=== PATIENT | female | born 1995 | race African-American/Black ===

== ENCOUNTER 2016-07-11 21:21 | Emergency (ER) | payer OTHER ==
[2016-07-11 21:28] VITALS: BP 125/73; PULSE 109; TEMP 101.7
[2016-07-11] MEDS ORDERED: ACETAMINOPHEN 650 MG/20.3 ML ORAL SOLUTION (CUPS) PO ONE (21:29)
--- NOTE | 2016-07-11 22:17 | PDOC ---
[id number] 4d COLD SYMPTOMS Time Seen by Provider: 07/11/16 22:05 History Source: Patient Exam Limitations: No Limitations - History of Present Illness Initial Comments: 07/11/16 22:14 Chief complaint: Sore throat, fever, slight nausea 4 days History of present illness: Patient is a 20 year old female with no significant medical history here today with her mother due to sore throat with fever and slight nausea 4 days. Patient denies nasal congestion or difficulty breathing or swallowing. Patient's is unsure of whether or not she could be has been off Depo shot since 01/2016. Patient denies any vomiting. She has had intermittent dry cough. And has had no known sick contacts. Patient did not have influenza vaccine. 07/11/16 22:51 Timing/Duration: intermittent (for 4 days) Severity: moderate Associated Symptoms: reports: fever/chills, nausea/vomiting (slight nausea), other (sore throat) Past History - Past Medical History Allergies/Adverse Reactions: Allergies Allergy/AdvReac Type Severity Reaction Status Date / Time No Known Allergies Allergy Verified 07/11/16 21:27 Thyroid Disease: No - Immunization History Immunization Up to Date: Yes - Psycho/Social/Smoking Cessation Hx Anxiety: No Suicidal Ideation: No Smoking Status: No Smoking History: Current some day smoker Have you smoked in the past 12 months: Yes Number of Cigarettes Smoked Daily: 4 Information on smoking cessation initiated: No 'Breaking Loose' booklet given: 04/19/16 Hx Alcohol Use: Yes Drug/Substance Use Hx: No Substance Use Type: Alcohol Review of Systems - Review of Systems Able to Perform ROS?: Yes Constitutional: Yes: Fever HEENTM: Yes: Throat Pain Respiratory: Yes: Cough. No: Shortness of Breath, SOB with Exertion, SOB at Rest, Stridor, Wheezing, Productive cough Cardiac (ROS): No: Symptoms Reported ABD/GI: Yes: Nausea : No: Symptoms Reported Musculoskeletal: No: Symptoms Reported Integumentary: No: Symptoms Reported Neurological: No: Symptoms reported *Physical Exam - Vital Signs Last Vital Signs Temp Pulse Resp BP Pulse Ox 101.7 F H 109 H 20 125/73 98 07/11/16 21:24 07/11/16 21:24 07/11/16 21:24 07/11/16 21:24 07/11/16 21:24 - Physical Exam General Appearance: Yes: Appropriately Dressed HEENT: positive: TMs Normal, Pharyngeal Erythema, Tonsillar Erythema (b/l enlarged with no uvular deviation ). negative: Tonsillar Exudate, Nasal Congestion, Rhinorrhea Neck: positive: Lymphadenopathy (R), Lymphadenopathy (L) Respiratory/Chest: positive: Lungs Clear, Normal Breath Sounds. negative: Chest Tender, Respiratory Distress Cardiovascular: positive: Regular Rhythm, Regular Rate, S1, S2 Integumentary: positive: Normal Color Neurologic: positive: Alert, Normal Response ED Treatment Course - Medications Given in the ED: ED Medications Discontinued Medications Generic Name Dose Route Start Last Admin Trade Name Eddy PRN Reason Stop Dose Admin Acetaminophen 650 mg 07/11/16 21:29 07/11/16 21:29 Tylenol Oral Solution - PO 07/11/16 21:30 650 mg NOW ONE Administration Medical Decision Making - Medical Decision Making 07/11/16 22:15 Patient is a 20 year old female with no significant medical history here today with her mother due to sore throat with fever and slight nausea 4 days. Patient denies any cough nasal congestion or difficulty breathing or swallowing. Patient's is unsure of whether or not she could be has been off Depo shot since 01/2016. Patient denies any vomiting. Tonsillitis Fever Rule out Plan: Urine hCG negative Pen VK 500 mg 4 times a day 7 days pt did not want pills Bicilliin LA 1.2 million units IM Decadron 10 mg by mouth now 07/11/16 22:40 07/11/16 22:44 07/11/16 22:47 *DC/Admit/Observation/Transfer Diagnosis at time of Disposition: Tonsillitis Fever Qualifiers: Fever type: unspecified Qualified Code(s): R50.9 - Fever, unspecified - Discharge Dispostion Disposition: HOME Condition at time of disposition: Stable - Referrals Referrals: Soham Cai MD [Primary Care Provider] - - Patient Instructions Additional Instructions: Drink A lot a fluids and rest ' Take acetaminophen or ibuprofen as needed as directed by trial justice for fever or pain Follow-up with primary within the next few days Return to emergency room if any difficulty breathing or swallowing Throw out toothbrush at the end of treatment get new one Patient voiced understanding of discharge instructions and all questions were answered
[2016-07-11] MEDS ORDERED: DEXAMETHASONE LIQUID 0.5 MG/5 ML 240 ML BULK BOTTLE PO ONE (22:44)
[2016-07-11] MEDS ORDERED: PENICILLIN G BENZATHINE 1,200,000 UNIT/2 ML PFS IM ONE (22:46)
[2016-07-11] MEDS ORDERED: PENICILLIN G BENZATHINE 2,400,000 UNIT/4 ML PFS ONE (22:47)
[2016-07-11] MEDS ORDERED: DEXAMETHASONE SOD PHOSPHATE 10 MG/1 ML VIAL ONE (22:48)
== END 2016-07-11 22:59 | disposition home or self-care (01) ==
LOC: JER 21:21 → JERFT 21:21
DX: J03.90 Acute tonsillitis, unspecified (principal); F17.210 Nicotine dependence, cigarettes, uncomplicated
CPT/HCPCS: 84703; 99281-25

== ENCOUNTER 2016-08-30 16:31 | Emergency (ER) | payer OTHER ==
[2016-08-30 16:48] VITALS: BMI 20.3
--- NOTE | 2016-08-30 17:00 | PDOC ---
*Physical Exam - Vital Signs Last Vital Signs Temp Pulse Resp BP Pulse Ox 99.0 F 105 H 18 125/80 98 08/30/16 16:47 08/30/16 16:47 08/30/16 16:47 08/30/16 16:47 08/30/16 16:47 Medical Decision Making - Medical Decision Making 08/30/16 17:00 Case discussed with SIGN PAINTER APPRENTICE. Plan as per SIGN PAINTER APPRENTICE *DC/Admit/Observation/Transfer Diagnosis at time of Disposition: Herpes simplex labialis - Discharge Dispostion Disposition: HOME Condition at time of disposition: Good - Prescriptions Prescriptions: Cephalexin [Keflex Suspension] 500 mg PO BID #140 ml Acyclovir Oral Suspension [Zovirax 200mg/5mL Oral Suspension -] 400 mg PO TID # 300 ml - Referrals Referrals: Rajesh Mayorga MD [Primary Care Provider] - - Patient Instructions Printed Discharge Instructions: DI for Urinary Tract Infection (UTI), DI for Genital Herpes Additional Instructions: I have recommended that you use a betadine rinse bottle mixed with half warm water to use when voiding to avoid skin irritation. Please take Keflex as prescribed until completed. Please take Zovirax until completed. Please call [phone] if you have not received a phone call in 7 days for results. - Post Discharge Activity Work/School Note: Back to Work
[2016-08-30] MEDS ORDERED: ACYCLOVIR 200 MG/5 ML PO ONE (17:10)
[2016-08-30] MEDS ORDERED: ACETAMINOPHEN 650 MG/20.3 ML ORAL SOLUTION (CUPS) PO ONE (17:10)
[2016-08-30] MEDS ORDERED: CEPHALEXIN MONOHYDRATE 500 MG CAPSULE (UD) PO ONE (17:11)
[2016-08-30] MEDS ORDERED: ACETAMINOPHEN 650 MG/20.3 ML ORAL SOLUTION (CUPS) ONE (17:28)
[2016-08-30] MEDS ORDERED: CEPHALEXIN MONOHYDRATE 250 MG CAPSULE (FP) ONE (17:29)
--- NOTE | 2016-08-30 17:47 | PDOC ---
History of Present Illness - General Chief Complaint: Pain, Acute Stated Complaint: ABD PAIN Time Seen by Provider: 08/30/16 16:41 History Source: Patient Exam Limitations: No Limitations - History of Present Illness Initial Comments: 08/30/16 17:42 20-year-old female presents to the ED with complaints of vaginal sores with burning and chills. Patient was seen at [facility] yesterday was given a dose of IV antibiotics for UTI and a prescription for Keflex which she was unable to get and due to the sores on her labia she decided to come to [facility] since she states no one address the sores on her labia when at [facility] yesterday. Patient denies fever but does state intermittent chills and states is currently mentating. Patient states has been with one sexual partner and denies any known STD history. Patient denies abdominal pain, vaginal discharge prior to menses, back pain, or history of STD. Timing/Duration: getting worse Severity: moderate Associated Symptoms: reports: other (burning to labia) Past History - Past Medical History Allergies/Adverse Reactions: Allergies Allergy/AdvReac Type Severity Reaction Status Date / Time No Known Allergies Allergy Verified 07/11/16 21:27 Home Medications: Ambulatory Orders Acyclovir Oral Suspension [Zovirax 200mg/5mL Oral Suspension -] 400 mg PO TID # 300 ml 08/30/16 Cephalexin [Keflex Suspension] 500 mg PO BID #140 ml 08/30/16 Thyroid Disease: No - Reproductive History LMP Normal: Yes Is Patient Now?: No - Immunization History Immunization Up to Date: Yes - Psycho/Social/Smoking Cessation Hx Anxiety: No Suicidal Ideation: No Smoking Status: No Smoking History: Current every day smoker Have you smoked in the past 12 months: Yes Number of Cigarettes Smoked Daily: 10 Information on smoking cessation initiated: No 'Breaking Loose' booklet given: 04/19/16 Hx Alcohol Use: No Drug/Substance Use Hx: No Substance Use Type: None Patient Lives Alone: No Lives with/in: parents Review of Systems - Review of Systems Able to Perform ROS?: Yes Constitutional: Yes: Chills. No: Fever ABD/GI: No: Symptoms Reported Integumentary: Yes: Other Neurological: No: Symptoms reported Endocrine: No: Symptoms Reported Hematologic/Lymphatic: No: Symptoms Reported *Physical Exam - Vital Signs Last Vital Signs Temp Pulse Resp BP Pulse Ox 99.0 F 105 H 18 125/80 98 08/30/16 16:47 08/30/16 16:47 08/30/16 16:47 08/30/16 16:47 08/30/16 16:47 - Physical Exam General Appearance: Yes: Nourished, Appropriately Dressed. No: Apparent Distress Female Pelvic Exam: positive: vaginal bleeding (currently menstruating), other ( noted cankerous lesions to left labia and around the vaginal opening) Gastrointestinal/Abdominal: positive: Soft. negative: Tenderness Integumentary: positive: Normal Color, Warm, Moist Neurologic: positive: Motor Strength 5/5 (ambulatory) Medical Decision Making - Medical Decision Making 08/30/16 17:45 Patient here for evaluation of sores to her labia and a prescription for her symptoms. Patient states also was diagnosed with UTI yesterday but did not start her pills and states has difficulty Tolerating pills. Based on clinical exam patient be treated with Zovirax STD workup including RPR ordered, urinalysis urine culture and urine ordered. Patient also ordered for first dose of Keflex here and liquid Tylenol. 08/30/16 18:14 Laboratory Tests 08/30/16 08/30/16 08/30/16 17:40 17:40 17:40 Urine Ketones Trace H Urine Blood 3+ H Ur Leukocyte Esterase 1+ H RPR Titer Pending C.trachomatis Ampl DNA Pending N. gonorrhoeae (LUIS) Pending 08/30/16 18:34 Laboratory Tests 08/30/16 17:40 Urine RBC 1716 Urine WBC 21 Patient will continue Keflex as prescribed requesting it be sent to [facility]. Patient will also be given prescription for Zovirax and told to take Tylenol for discomfort and fever. ST testing was sent including RPR and patient aware will receive phone call if positive within 7 days. Patient also be given the call back number *DC/Admit/Observation/Transfer Diagnosis at time of Disposition: Herpes simplex labialis - Discharge Dispostion Disposition: HOME Condition at time of disposition: Good - Prescriptions Prescriptions: Cephalexin [Keflex Suspension] 500 mg PO BID #140 ml Acyclovir Oral Suspension [Zovirax 200mg/5mL Oral Suspension -] 400 mg PO TID # 300 ml - Referrals Referrals: Rajesh Mayorga MD [Primary Care Provider] - - Patient Instructions Printed Discharge Instructions: DI for Genital Herpes, DI for Urinary Tract Infection (UTI) Additional Instructions: I have recommended that you use a betadine rinse bottle mixed with half warm water to use when voiding to avoid skin irritation. Please take Keflex as prescribed until completed. Please take Zovirax until completed. Please call [phone] if you have not received a phone call in 7 days for results. - Post Discharge Activity Work/School Note: Back to Work
[2016-08-30 17:56] LABS: URINE APPEARANCE SLCLOUDY; URINE BILIRUBIN NEGATIVE (NEGATIVE); URINE COLOR LTYELLOW; URINE GLUCOSE (UA) NEGATIVE (NEGATIVE); URINE KETONE TRACE (NEGATIVE); URINE NITRITE NEGATIVE (NEGATIVE); URINE PROTEIN NEGATIVE (NEGATIVE); URINE UROBILINOGEN NEGATIVE E.U./dl (0.2-1.0)
[2016-08-30 18:05] LABS: URINE BLOOD 3+ (NEGATIVE); URINE LEUK ESTERASE 1+ (NEGATIVE)
[2016-08-30 18:06] LABS: URINE MUCUS RARE; URINE RBC 1716 /hpf (0-3); URINE WBC 21 /hpf (3-5)
[2016-08-30 19:09] VITALS: BP 120/54; PULSE 89; TEMP 98.5
== END 2016-08-30 19:09 | disposition home or self-care (01) ==
LOC: JER 16:31
DX: A60.04 Herpesviral vulvovaginitis (principal); N39.0 Urinary tract infection, site not specified
CPT/HCPCS: 36415; 81003; 81015; 84703; 86593; 87086; 87255; 87491; 87591; 99282-25

== ENCOUNTER 2016-09-20 13:01 | Emergency (ER) | payer OTHER ==
[2016-09-20 13:06] VITALS: BP 120/84; PULSE 80; TEMP 97.8; BMI 18.3
[2016-09-20 14:18] LABS: URINE APPEARANCE CLEAR; URINE BILIRUBIN NEGATIVE (NEGATIVE); URINE BLOOD NEGATIVE (NEGATIVE); URINE COLOR STRAW; URINE GLUCOSE (UA) NEGATIVE (NEGATIVE); URINE KETONE NEGATIVE (NEGATIVE); URINE NITRITE NEGATIVE (NEGATIVE); URINE PROTEIN NEGATIVE (NEGATIVE); URINE UROBILINOGEN NEGATIVE E.U./dl (0.2-1.0)
[2016-09-20 14:20] LABS: URINE LEUK ESTERASE 2+ (NEGATIVE)
[2016-09-20 14:21] LABS: URINE BACTERIA RARE /hpf (NONE SEEN); URINE MUCUS RARE; URINE RBC 2 /hpf (0-3); URINE WBC 2 /hpf (3-5)
--- NOTE | 2016-09-20 14:21 | PDOC ---
History of Present Illness - General Chief Complaint: Urinary Problem Stated Complaint: burning on urination Time Seen by Provider: 09/20/16 13:44 History Source: Patient Exam Limitations: No Limitations - History of Present Illness Travel History: No Initial Comments: 09/20/16 14:28 Patient with complaints of vaginal itching and discharge for the past few days. Patient also complaining of continual bumps to her labia despite taking Zovirax. Patient also states has had unprotected sex after her last visit is requesting a test. Patient has no complaints of abdominal pain as mentioned in triage. Patient states mild dysuria but feels the burning is to the skin and not to the urethra secondary to open areas. Timing/Duration: reports: intermittent Quality: reports: mild, burning Abdominal Pain Onset Location: reports: other Aggravating Factors: improves with: Voiding Alleviating Factors: improves with: None Past History - Past Medical History Allergies/Adverse Reactions: Allergies Allergy/AdvReac Type Severity Reaction Status Date / Time No Known Allergies Allergy Verified 09/20/16 13:06 Home Medications: Ambulatory Orders Acyclovir Oral Suspension [Zovirax 200mg/5mL Oral Suspension -] 400 mg PO TID # 300 ml 08/30/16 Cephalexin [Keflex Suspension] 500 mg PO BID #140 ml 08/30/16 Thyroid Disease: No - Immunization History Immunization Up to Date: Yes - Psycho/Social/Smoking Cessation Hx Anxiety: No Suicidal Ideation: No Smoking Status: No Smoking History: Never smoked Have you smoked in the past 12 months: Yes Number of Cigarettes Smoked Daily: 10 Information on smoking cessation initiated: No 'Breaking Loose' booklet given: 04/19/16 Hx Alcohol Use: No Drug/Substance Use Hx: No Substance Use Type: None Patient Lives Alone: No Lives with/in: parents Review of Systems - Review of Systems Able to Perform ROS?: Yes Constitutional: No: Symptoms Reported ABD/GI: No: Symptoms Reported : Yes: Burning, Discharge Musculoskeletal: No: Symptoms Reported Integumentary: Yes: Other Neurological: No: Symptoms reported *Physical Exam - Vital Signs Last Vital Signs Temp Pulse Resp BP Pulse Ox 97.8 F 80 18 120/84 100 09/20/16 13:04 09/20/16 13:04 09/20/16 13:04 09/20/16 13:04 09/20/16 13:04 - Physical Exam General Appearance: Yes: Nourished, Appropriately Dressed. No: Apparent Distress Female Pelvic Exam: positive: cervical os closed, discharge (white nonodorous curd-like). negative: normal external exam, CMT, adnexal tenderness Gastrointestinal/Abdominal: positive: Soft. negative: Tenderness Extremity: positive: Normal Capillary Refill. negative: Pedal Edema Integumentary: positive: Other (Noted excoriation to labia majora with flat open sores without signs of infection.) Neurologic: positive: Motor Strength 5/5 (ambulatory) ED Treatment Course - ADDITIONAL ORDERS Additional order review: Laboratory Results 09/20/16 14:00 Urine Color Straw Urine Appearance Clear Urine pH 7.0 D Ur Specific Morris 1.016 Urine Protein Negative Urine Glucose (UA) Negative Urine Ketones Negative Urine Blood Negative Urine Nitrite Negative Urine Bilirubin Negative Urine Urobilinogen Negative Ur Leukocyte Esterase 2+ H Urine HCG, Qual Negative Medical Decision Making - Medical Decision Making 09/20/16 14:34 Patient here with burning to her labia with vaginal discharge for the past few days after completing antibiotics. Patient had STD testing done which was negative for syphilis, gonorrhea and chlamydia. Herpes culture was canceled for unknown reason. Patient states didn't take the Zovirax. Patient currently presents with Sarai vaginitis and will be prescribed miconazole suppositories. Patient also ordered for urine and urinalysis. 09/20/16 14:43 Laboratory Tests 09/20/16 14:00 Ur Leukocyte Esterase 2+ H Urine WBC 2 Urine HCG, Qual Negative Patient will be discharged home with miconazole and told to follow up with her TROUBLE TRACER which she has scheduled next week. *DC/Admit/Observation/Transfer Diagnosis at time of Disposition: Candidiasis of vagina - Discharge Dispostion Disposition: HOME Condition at time of disposition: Good - Referrals Referrals: Rajesh Mayorga MD [Primary Care Provider] - - Patient Instructions Printed Discharge Instructions: DI for Vaginal Yeast Infection Additional Instructions: Please keep area clean and dry and wear cotton underwear. Please do not apply topicals to the affected area and avoid sexual intercourse until follow-up with your TROUBLE TRACER. Please use suppositories as recommended
== END 2016-09-20 14:53 | disposition home or self-care (01) ==
LOC: JERFT 13:01
DX: B37.3 Candidiasis of vulva and vagina (principal)
CPT/HCPCS: 36415; 81003; 81015; 84703; 87086; 87491; 87591; 99281-25

== ENCOUNTER 2016-10-02 10:24 | Emergency (ER) | payer OTHER ==
[2016-10-02 10:28] VITALS: BP 118/82; PULSE 115; TEMP 99.9; BMI 18.8
[2016-10-02] MEDS ORDERED: IBUPROFEN 400 MG TABLET (FP) PO ONE (11:44)
[2016-10-02] MEDS ORDERED: IBUPROFEN 100 MG/5 ML UNIT DOSE CUPS PO ONE (11:55)
[2016-10-02] MEDS ORDERED: DEXAMETHASONE SOD PHOSPHATE 10 MG/1 ML VIAL IM ONE (11:56)
[2016-10-02] MEDS ORDERED: PENICILLIN G BENZATHINE 1,200,000 UNIT/2 ML PFS IM ONE (11:56)
--- NOTE | 2016-10-02 12:01 | PDOC ---
History of Present Illness - General Chief Complaint: Sore Throat Stated Complaint: SORE THROAT, HEADACHE Time Seen by Provider: 10/02/16 11:16 History Source: Patient - History of Present Illness Timing/Duration: reports: other Associated Symptoms: reports: earache, fever/chills, headache, sore throat. denies: cough, facial pain, nasal congestion, nasal drainage, shortness of breath Past History - Past Medical History Allergies/Adverse Reactions: Allergies Allergy/AdvReac Type Severity Reaction Status Date / Time No Known Allergies Allergy Verified 09/20/16 13:06 Home Medications: Ambulatory Orders Ibuprofen Oral Suspension [Motrin Oral Suspension -] 600 mg PO Q6H #140 ml 10/02 Thyroid Disease: No - Immunization History Immunization Up to Date: Yes - Psycho/Social/Smoking Cessation Hx Anxiety: No Suicidal Ideation: No Smoking Status: No Smoking History: Never smoked Have you smoked in the past 12 months: Yes Number of Cigarettes Smoked Daily: 10 Information on smoking cessation initiated: No 'Breaking Loose' booklet given: 04/19/16 Hx Alcohol Use: No Drug/Substance Use Hx: No Substance Use Type: None Review of Systems - Review of Systems Constitutional: Yes: Fever HEENTM: Yes: Throat Pain. No: Ear Pain Respiratory: No: Cough *Physical Exam - Vital Signs Last Vital Signs Temp Pulse Resp BP Pulse Ox 99.9 F H 115 H 18 118/82 99 10/02/16 10:26 10/02/16 10:26 10/02/16 10:26 10/02/16 10:26 10/02/16 10:26 - Physical Exam General Appearance: Yes: Appropriately Dressed. No: Apparent Distress HEENT: positive: Normal Voice, TMs Normal, Tonsillar Exudate (w/ L tonsillar enlargement, no uvular devaiation). negative: Scleral Icterus (R), Scleral Icterus (L) Neck: positive: Supple Respiratory/Chest: negative: Respiratory Distress Integumentary: positive: Dry, Warm Neurologic: positive: Fully Oriented, Alert, Normal Mood/Affect Medical Decision Making - Medical Decision Making 10/02/16 11:56 20 yo F, recurrent strep, p/w sore throat w/ malaise, bodyaches and fever x 3 days. Taking nyquil at home. No sick contacts or recent travel See exam Strep pharyngitis Tachy w/ low grade fever and L tonsillar enlargement w/ exudates, no e/o CVT TECH -bicillin -decadron -antipyretic -dc w/ supportive tx 10/02/16 12:04 *DC/Admit/Observation/Transfer Diagnosis at time of Disposition: Strep pharyngitis - Discharge Dispostion Disposition: HOME Condition at time of disposition: Good - Prescriptions Prescriptions: Ibuprofen Oral Suspension [Motrin Oral Suspension -] 600 mg PO Q6H #140 ml - Patient Instructions Printed Discharge Instructions: Strep Throat Additional Instructions: Take motrin every 6 hrs as needed for pain/fever, maintain adequate hydration and rest
[2016-10-02] MEDS ORDERED: PENICILLIN G BENZATHINE 2,400,000 UNIT/4 ML PFS ONE (12:02)
[2016-10-02] MEDS ORDERED: IBUPROFEN 100 MG/5 ML UNIT DOSE CUPS ONE (12:02)
[2016-10-02] MEDS ORDERED: DEXAMETHASONE SOD PHOSPHATE 10 MG/1 ML VIAL ONE (12:02)
== END 2016-10-02 12:21 | disposition home or self-care (01) ==
LOC: JERFT 10:24
PROC: 3E0233Z Introduction of Anti-inflammatory into Muscle, Percutaneous Approach (ICD-10-PCS; principal; 2016-10-02)
PROC: 3E02329 Introduction of Other Anti-infective into Muscle, Percutaneous Approach (ICD-10-PCS; 2016-10-02)
DX: J02.0 Streptococcal pharyngitis (principal); B95.5 Unspecified streptococcus as the cause of diseases classified elsewhere
CPT/HCPCS: 99281-25

== ENCOUNTER 2016-11-30 18:38 | Emergency (ER) | payer OTHER ==
[2016-11-30 18:44] VITALS: BP 93/50; PULSE 93; TEMP 99.6; BMI 17.4
[2016-11-30] MEDS ORDERED: PENICILLIN G BENZATHINE 1,200,000 UNIT/2 ML PFS IM ONE (18:55)
--- NOTE | 2016-11-30 18:58 | PDOC ---
History of Present Illness - General Chief Complaint: Sore Throat Stated Complaint: SWOLLEN THROAT Time Seen by Provider: 11/30/16 18:51 History Source: Patient Exam Limitations: No Limitations - History of Present Illness Initial Comments: 11/30/16 18:55 Patient here with complaints of acute onset of sore throat pain. States started last night, continued progressively become worse, saltwater gargles and used some Cepacol spray. States woke up this morning felt feverish, and throat was much worse. States has suffered from strep throat in the past and feels is same. Works at a [employer] Timing/Duration: unsure, 24 hours Severity: mild, moderate Associated Symptoms: reports: fever/chills, loss of appetite, malaise Past History - Travel Traveled outside of the country in the last 30 days: No Close contact w/someone who was outside of country & ill: No - Past Medical History Allergies/Adverse Reactions: Allergies Allergy/AdvReac Type Severity Reaction Status Date / Time No Known Allergies Allergy Verified 11/30/16 18:44 Home Medications: Ambulatory Orders Ibuprofen Oral Suspension [Motrin Oral Suspension -] 600 mg PO Q6H #140 ml 10/02 Thyroid Disease: No - Immunization History Immunization Up to Date: Yes - Psycho/Social/Smoking Cessation Hx Anxiety: No Suicidal Ideation: No Smoking Status: No Smoking History: Never smoked Have you smoked in the past 12 months: Yes Number of Cigarettes Smoked Daily: 10 'Breaking Loose' booklet given: 04/19/16 Hx Alcohol Use: No Drug/Substance Use Hx: No Substance Use Type: None Review of Systems - Review of Systems Able to Perform ROS?: Yes Is the patient limited Divehi proficient: Yes Constitutional: Yes: Symptoms Reported, See HPI, Fever, Malaise HEENTM: Yes: Symptoms Reported, See HPI, Throat Pain, Difficulty Swallowing. No : Nose Congestion Respiratory: Yes: Symptoms reported, See HPI. No: Cough Musculoskeletal: Yes: Symptoms Reported All Other Systems: Reviewed and Negative *Physical Exam - Vital Signs Last Vital Signs Temp Pulse Resp BP Pulse Ox 99.6 F 93 H 20 93/50 98 11/30/16 18:42 11/30/16 18:42 11/30/16 18:42 11/30/16 18:42 11/30/16 18:42 - Physical Exam General Appearance: Yes: Nourished, Appropriately Dressed, Apparent Distress, Mild Distress HEENT: positive: DEONTE, TMs Normal, Tonsillar Erythema (beefy red with grayish exudate to bilateral tonsils that are swollen.). negative: Pharynx Normal, Nasal Congestion, Rhinorrhea Neck: positive: Tender, Supple, Lymphadenopathy (R), Lymphadenopathy (L) Respiratory/Chest: positive: Lungs Clear, Normal Breath Sounds Cardiovascular: positive: Regular Rate Gastrointestinal/Abdominal: positive: Normal Bowel Sounds, Soft. negative: Tender Extremity: positive: Normal Capillary Refill, Normal Inspection Integumentary: positive: Normal Color, Dry, Warm, Pale Neurologic: positive: certified activities director II-XII NML intact, Fully Oriented, Alert, Normal Mood/ Affect, Normal Response, Motor Strength 10/03 Medical Decision Making - Medical Decision Making 11/30/16 18:57 Pharyngitis, will treat with Bicillin 1.2million units IM, with no reaction after 30 minutes observation *DC/Admit/Observation/Transfer Diagnosis at time of Disposition: Pharyngitis Qualifiers: Pharyngitis/tonsillitis etiology: unspecified etiology Qualified Code(s): J02.9 - Acute pharyngitis, unspecified - Discharge Dispostion Disposition: HOME Condition at time of disposition: Stable Admit: No - Patient Instructions Printed Discharge Instructions: DI for Pharyngitis/Tonsillopharyngitis -- Adult Additional Instructions: Rest, drink lots of fluids: Teas, water, soups Eat cold things: Ice cream, ice pops, ice chips Saltwater gargles Steamy showers/seem to face break up mucus Avoid contact with others until fevers and pain resolved Lots of handwashing and good hygiene, this is contagious You have been treated with Bicillin LA 1.2 million units injection which is a one-time treatment for strep pharyngitis. You will not need to take any further antibiotics. Tylenol or Motrin for fever and pain Followup with private physician in one to 2 days as needed if not improving Return to emergency department for worsened symptoms, fevers, dehydration - Post Discharge Activity Work/School Note: Back to Work
[2016-11-30] MEDS ORDERED: PENICILLIN G BENZATHINE 2,400,000 UNIT/4 ML PFS ONE ×2 (19:36→19:37)
== END 2016-11-30 20:04 | disposition home or self-care (01) ==
LOC: JERFT 18:38
DX: J02.9 Acute pharyngitis, unspecified (principal)
CPT/HCPCS: 84703; 99281-25

== ENCOUNTER 2016-12-02 14:28 | Emergency (ER) | payer OTHER ==
[2016-12-02 14:36] VITALS: TEMP 99.2; BMI 17.4
--- NOTE | 2016-12-02 14:38 | PDOC ---
History of Present Illness - General Chief Complaint: Sore Throat Stated Complaint: SORE THROAT Time Seen by Provider: 12/02/16 14:37 History Source: Patient Exam Limitations: No Limitations - History of Present Illness Timing/Duration: 1 week Associated Symptoms: reports: other (sore throat). denies: cough, fever/chills Past History - Past Medical History Allergies/Adverse Reactions: Allergies Allergy/AdvReac Type Severity Reaction Status Date / Time No Known Allergies Allergy Verified 12/02/16 14:36 Home Medications: Ambulatory Orders Ibuprofen Oral Suspension [Motrin Oral Suspension -] 600 mg PO Q6H #140 ml 10/02 Penicillin V Potassium [Pen Vee K Suspension -] 500 mg PO TID #210 ml 12/02/16 Thyroid Disease: No - Immunization History Immunization Up to Date: Yes - Psycho/Social/Smoking Cessation Hx Anxiety: No Suicidal Ideation: No Smoking Status: No Smoking History: Never smoked Have you smoked in the past 12 months: Yes Number of Cigarettes Smoked Daily: 10 Information on smoking cessation initiated: No 'Breaking Loose' booklet given: 04/19/16 Hx Alcohol Use: No Drug/Substance Use Hx: No Substance Use Type: None Review of Systems - Review of Systems Able to Perform ROS?: Yes Comments:: 12/02/16 15:53 CONSTITUTIONAL: Absent: fever, chills, diaphoresis, generalized weakness, malaise, loss of appetite HEENT: +throat pain Absent: rhinorrhea, nasal congestion, throat swelling, difficulty swallowing, mouth swelling, ear pain, eye pain, visual Changes CARDIOVASCULAR: Absent: chest pain, loss of consciousness, palpitations, irregular heart rate, peripheral edema RESPIRATORY: Absent: cough, shortness of breath, dyspnea with exertion, orthopnea, wheezing, stridor, hemoptysis GASTROINTESTINAL: Absent: abdominal pain, abdominal distension, nausea, vomiting, diarrhea, constipation, melena, hematochezia GENITOURINARY: Absent: dysuria, frequency, urgency, hesitancy, hematuria, flank pain, genital pain SKIN: Absent: rash, itching, pallor Is the patient limited Indonesian proficient: No *Physical Exam - Vital Signs Last Vital Signs Temp Pulse Resp BP Pulse Ox 99.2 F 95 H 18 93/50 100 12/02/16 14:34 12/02/16 14:34 12/02/16 14:34 12/02/16 14:34 12/02/16 14:34 - Physical Exam Comments: 12/02/16 15:53 GENERAL: Well developed, well nourished. Awake and alert. No acute distress. HEENT: B/L exudate to tonsils, neg LIBRARY AIDE Normocephalic, atraumatic. PERRLA, EOMI. No conjunctival pallor. Sclera are non- icteric. Moist mucous membranes. NECK: Supple. Full ROM. No JVD. Carotid pulses 2+ and symmetric, without bruits. No thyromegaly. No lymphadenopathy. CARDIOVASCULAR: Regular rate and rhythm. No murmurs, rubs, or gallops. Distal pulses are 2+ and symmetric. PULMONARY: No evidence of respiratory distress. Lungs clear to auscultation bilaterally. No wheezing, rales or rhonchi. ABDOMINAL: Soft. Non-tender. Non-distended. No rebound or guarding. No organomegaly. Normoactive bowel sounds. *DC/Admit/Observation/Transfer Diagnosis at time of Disposition: Strep pharyngitis - Discharge Dispostion Disposition: HOME Condition at time of disposition: Stable Admit: No - Prescriptions Prescriptions: Penicillin V Potassium [Pen Vee K -] 500 mg PO TID #21 tablet - Referrals Referrals: Rajesh Mayorga MD [Primary Care Provider] - Chaz Mendoza MD [Staff Physician] - - Patient Instructions Printed Discharge Instructions: DI for Strep Throat Additional Instructions: Gargle with salt water Rx: pen vee k 500mg three times a day Tylenol /motrin as needed for pain Return to the ER for severe/persistent/worsening symptoms -Rest and stay well-hydrated -Take ibuprofen 600mg every 6 hrs as prescribed -You were given a one-time dose of antibiotics and steroids today -Follow up with primary care next week and return here for any worsening symptoms, especially difficulty breathing or inability to swallow fluids - Post Discharge Activity Work/School Note: Back to Work
--- NOTE | 2016-12-02 15:23 | PDOC ---
*Physical Exam - Vital Signs Last Vital Signs Temp Pulse Resp BP Pulse Ox 99.2 F 95 H 18 93/50 100 12/02/16 14:34 12/02/16 14:34 12/02/16 14:34 12/02/16 14:34 12/02/16 14:34 Medical Decision Making - Medical Decision Making 12/02/16 15:23 20 yo F presenting to the ER with a complaint of sore throat Strep pharyngitis Pt seen by Midlevel Provider under my direct supervision I agree with plan as outlined by Midlevel Provider *DC/Admit/Observation/Transfer Diagnosis at time of Disposition: Strep pharyngitis - Discharge Dispostion Disposition: HOME Condition at time of disposition: Stable - Prescriptions Prescriptions: Penicillin V Potassium [Pen Vee K Suspension -] 500 mg PO TID #210 ml - Referrals Referrals: Rajesh Mayorga MD [Primary Care Provider] - Chaz Mendoza MD [Staff Physician] - - Patient Instructions Printed Discharge Instructions: DI for Strep Throat Additional Instructions: Gargle with salt water Rx: pen vee k 500mg three times a day Tylenol /motrin as needed for pain Return to the ER for severe/persistent/worsening symptoms -Rest and stay well-hydrated -Take ibuprofen 600mg every 6 hrs as prescribed -You were given a one-time dose of antibiotics and steroids today -Follow up with primary care next week and return here for any worsening symptoms, especially difficulty breathing or inability to swallow fluids - Post Discharge Activity Work/School Note: Back to Work
[2016-12-02] MEDS ORDERED: AMOXICILLIN 500 MG CAPSULE (FP) PO ONE (16:01)
[2016-12-02] MEDS ORDERED: AMOXICILLIN 500 MG CAPSULE (FP) ONE (16:13)
[2016-12-02 16:25] VITALS: BP 114/70; PULSE 68
== END 2016-12-02 16:25 | disposition home or self-care (01) ==
LOC: JER 14:28
DX: J02.0 Streptococcal pharyngitis (principal); B95.0 Streptococcus, group A, as the cause of diseases classified elsewhere
CPT/HCPCS: 87070; 87430; 99282-25

== ENCOUNTER 2016-12-04 17:48 | Emergency (ER) | payer OTHER ==
[2016-12-04 18:09] VITALS: BP 117/60; BMI 18.3
[2016-12-04] MEDS ORDERED: IBUPROFEN 400 MG TABLET (FP) PO ONE ×2 (19:12→19:28)
[2016-12-04] MEDS ORDERED: IBUPROFEN 100 MG/5 ML UNIT DOSE CUPS ONE (19:33)
--- NOTE | 2016-12-04 19:59 | PDOC ---
History of Present Illness - General Chief Complaint: Cold Symptoms Stated Complaint: SORE THROAT Time Seen by Provider: 12/04/16 19:11 History Source: Patient - History of Present Illness Timing/Duration: reports: other Possible Cause: Yes: occasional episodes Associated Symptoms: reports: fever/chills, sore throat. denies: cough, earache , facial pain, nasal drainage Past History - Past Medical History Allergies/Adverse Reactions: Allergies Allergy/AdvReac Type Severity Reaction Status Date / Time No Known Allergies Allergy Verified 12/04/16 18:05 Home Medications: Ambulatory Orders Ibuprofen Oral Suspension [Motrin Oral Suspension -] 600 mg PO Q6H #140 ml 10/02 Penicillin V Potassium [Pen Vee K Suspension -] 500 mg PO TID #210 ml 12/02/16 Ibuprofen Oral Suspension [Motrin Oral Suspension -] 600 mg PO Q6H #140 ml 12/04 Methylprednisolone [Medrol Dose Philip] 4 mg PO ASDIR #21 tablet 12/04/16 Thyroid Disease: No Other medical history: DENIES. - Immunization History Immunization Up to Date: Yes - Psycho/Social/Smoking Cessation Hx Anxiety: No Suicidal Ideation: No Smoking Status: No Smoking History: Former smoker Have you smoked in the past 12 months: Yes Number of Cigarettes Smoked Daily: 10 Information on smoking cessation initiated: No 'Breaking Loose' booklet given: 04/19/16 Hx Alcohol Use: No Drug/Substance Use Hx: No Substance Use Type: None Review of Systems - Review of Systems Constitutional: Yes: Fever HEENTM: Yes: Throat Pain. No: Ear Pain Respiratory: No: Cough *Physical Exam - Vital Signs Last Vital Signs Temp Pulse Resp BP Pulse Ox 102 F H 124 H 19 117/60 98 12/04/16 18:05 12/04/16 18:05 12/04/16 18:05 12/04/16 18:05 12/04/16 18:05 - Physical Exam General Appearance: Yes: Appropriately Dressed. No: Apparent Distress HEENT: positive: Normal Voice, Tonsillar Exudate, Other (b/l tonsillar enlargement w/ significant exudates, no uvular deviation) Neck: positive: Supple. negative: Lymphadenopathy (R), Lymphadenopathy (L) Respiratory/Chest: negative: Respiratory Distress Integumentary: positive: Dry, Warm Neurologic: positive: Fully Oriented, Alert, Normal Mood/Affect ED Treatment Course - Medications Given in the ED: ED Medications Discontinued Medications Generic Name Dose Route Start Last Admin Trade Name Eddy PRN Reason Stop Dose Admin Ibuprofen 800 mg 12/04/16 19:12 12/04/16 19:43 Motrin - PO 12/04/16 19:13 800 mg ONCE ONE Administration Medical Decision Making - Medical Decision Making 12/04/16 19:54 20 yo F, h/o recurrent strep throat, presents with persistent sore throat and dysphagia. Patient was initially seen in ED 5 days ago and treated presumably for strep with Bicillin. Return to days later with persistent symptoms and was discharged with prescription for pen VK for 3 days which she is currently taking. Of note, though rapid strep was positive on last visit, throat cx was negative. Pt returns again today with same symptoms. No fever or chills See exam Strep pharyngitis TX w/ bicillin and currently on pen vk w/ persistent sxs Throat cx neg 3 days ago Febrile to 102 w/ persistent b/l tonsilar enlargement and significant exudates but no e/o RAG SORTER or additional complication at this time -Antipyretic in ED, refusing decadron -will send off another throat cx given that throat findings still significant -Will dx a/ motrin and medrol dose pack -Will refer to ENT at this point 12/04/16 20:45 Vital improved w/ meds. Pt stable for discharge w/ meds and ENT f/u. Will call to follow up on cx results *DC/Admit/Observation/Transfer Diagnosis at time of Disposition: Strep pharyngitis - Discharge Dispostion Disposition: HOME Condition at time of disposition: Improved - Prescriptions Prescriptions: Methylprednisolone [Medrol Dose Philip] 4 mg PO ASDIR #21 tablet Ibuprofen Oral Suspension [Motrin Oral Suspension -] 600 mg PO Q6H #140 ml - Referrals Referrals: Rajesh Mayorga MD [Primary Care Provider] - Chaz Mendoza MD [Staff Physician] - - Patient Instructions Additional Instructions: Please take medications as directed and follow-up with Dr. Mendoza of ENT next week Please call [phone] for test results in 2 days
[2016-12-04 20:53] VITALS: PULSE 89; TEMP 99.6
== END 2016-12-04 20:53 | disposition home or self-care (01) ==
LOC: JERFT 17:48
DX: J02.0 Streptococcal pharyngitis (principal); B95.0 Streptococcus, group A, as the cause of diseases classified elsewhere
CPT/HCPCS: 87070; 87430; 99281-25

== ENCOUNTER 2017-02-11 21:59 | Emergency (ER) | payer OTHER ==
[2017-02-11 22:08] VITALS: BP 99/58; PULSE 88; TEMP 98.9; BMI 17.0
--- NOTE | 2017-02-11 22:23 | PDOC ---
Attending Attestation - Resident Resident Name: Alysia Ross - ED Attending Attestation I have performed the following: I have examined & evaluated the patient, The case was reviewed & discussed with the resident, I agree w/resident's findings & plan, Exceptions are as noted - Physicial Exam PE: 02/12/17 00:36 *Physical Exam General Appearance: Yes: Appropriately Dressed. No: Apparent Distress, Intoxicated HEENT: positive: EOMI, DEONTE, Normal ENT Inspection, Normal Voice, TMs Normal, Pharynx Normal. negative: Pale Conjunctivae, Photophobia, Scleral Icterus (R), Scleral Icterus (L) Neck: positive: Trachea midline, Normal Thyroid, Supple. negative: Tender, Rigid, Carotid bruit, Stridor, Lymphadenopathy (R), Lymphadenopathy (L), Thyromegaly Respiratory/Chest: positive: Lungs Clear, Normal Breath Sounds. negative: Chest Tender, Respiratory Distress, Accessory Muscle Use, Labored Respiration, RES, Crackles, Rales, Rhonchi, Stridor, Wheezing, Dullness Cardiovascular: positive: Regular Rhythm, Regular Rate, S1, S2. negative: Edema , JVD, Murmur, Bradycardia, Tachycardia Vascular Pulses: Dorsalis-Pedis (R): 2+, Doralis-Pedis (L): 2+ Gastrointestinal/Abdominal: positive: Normal Bowel Sounds, Flat, Soft. negative : Tender, Organomegaly, Pulsatile Mass, Increased Bowel Sounds, Decreased BS, Distended, Guarding, Rebound, Hernia, Hepatomegaly, Spleenomegaly Lymphatic: negative: Adenopathy, Tenderness Musculoskeletal: positive: Normal Inspection. negative: CVA Tenderness, Decreased Range of Motion Extremity: positive: Normal Capillary Refill, Normal Inspection, Normal Range of Motion, Pelvis Stable. negative: Tender, Pedal Edema, Swelling, Erythema Integumentary: positive: Normal Color, Dry, Warm. negative: Cyanotic, Erythema , Jaundice, Rash Neurologic: positive: crew chief II-XII NML intact, Fully Oriented, Alert, Normal Mood/ Affect, Motor Strength 5/5. negative: EOM Palsy, Facial Droop, Sensory Deficit - Medical Decision Making 02/12/17 00:36 Bhcg shows pt is approximately 6 weeks . + IUP on US. Pt will follow with OB/ Thermostat Maker.
--- NOTE | 2017-02-11 22:25 | PDOC ---
History of Present Illness - General Chief Complaint: Pain Stated Complaint: ABDOMINAL PAIN Time Seen by Provider: 02/11/17 22:14 History Source: Patient Exam Limitations: No Limitations - History of Present Illness Initial Comments: This is a 21 year old female with h/o genital herpes (on acyclovir prn without any recent outbreak) who presents with lower abdominal cramping up to 7/ 10 for the past week. The pain has generally been improving since the onset but is still at 7/10, is non-radiating, and is not improved or worsened by any factors. She has not taken medications for the pain. This feels like the cramps she gets during her normal menstrual periods. She additionally notes nausea in the mornings and recently decrease appetite, but no vomiting, diarrhea, constipation, dysuria, strange colors/smells to her urine, vaginal discharge, or other recent symptoms. She is not on control and is sexually active, and endorses a possibility she may be . Her last pelvic exam was in October 2016 and was normal. Past History - Past Medical History Allergies/Adverse Reactions: Allergies Allergy/AdvReac Type Severity Reaction Status Date / Time No Known Allergies Allergy Verified 12/04/16 18:05 Home Medications: Ambulatory Orders NK [No Known Home Medication] 02/11/17 Thyroid Disease: No - Immunization History Immunization Up to Date: Yes - Psycho/Social/Smoking Cessation Hx Anxiety: No Suicidal Ideation: No Smoking Status: No Smoking History: Never smoked Have you smoked in the past 12 months: Yes Number of Cigarettes Smoked Daily: 10 'Breaking Loose' booklet given: 04/19/16 Hx Alcohol Use: No Drug/Substance Use Hx: No Substance Use Type: None Review of Systems - Review of Systems Constitutional: Yes: Loss of Appetite. No: Chills, Fever, Unexplained wgt Loss HEENTM: No: Nose Congestion, Throat Pain Respiratory: No: Cough, Shortness of Breath Cardiac (ROS): No: Chest Pain, Palpitations ABD/GI: Yes: Nausea, Abdominal cramping. No: Constipated, Diarrhea, Vomiting : No: Burning, Dysuria Musculoskeletal: No: Back Pain, Neck Pain Integumentary: No: Bruising, Rash Neurological: No: Headache, Numbness, Tingling, Weakness, Dizziness Endocrine: No: Unexplained Weight Gain, Unexplained Weight Loss *Physical Exam - Vital Signs Last Vital Signs Temp Pulse Resp BP Pulse Ox 98.9 F 88 16 99/58 100 02/11/17 22:03 02/11/17 22:03 02/11/17 22:03 02/11/17 22:03 02/11/17 22:03 - Physical Exam General Appearance: Yes: Nourished, Appropriately Dressed, Thin, Other ( nontoxic appearing, pleasant, in good humor, answering questions appropriately) . No: Apparent Distress HEENT: positive: EOMI, Normal Voice, Hearing Grossly Normal. negative: Scleral Icterus (R), Scleral Icterus (L), Nasal Congestion Neck: positive: Trachea midline, Supple. negative: Tender, Rigid Respiratory/Chest: positive: Lungs Clear, Normal Breath Sounds. negative: Respiratory Distress, Crackles, Rhonchi, Stridor, Wheezing Cardiovascular: positive: Regular Rhythm, Regular Rate. negative: Murmur Gastrointestinal/Abdominal: positive: Normal Bowel Sounds, Tender (minimal suprapubic tenderness), Soft. negative: Organomegaly, Pulsatile Mass, Guarding Musculoskeletal: positive: Normal Inspection. negative: Decreased Range of Motion, Vertebral Tenderness Extremity: positive: Normal Capillary Refill, Normal Inspection, Normal Range of Motion. negative: Tender, Cyanosis Integumentary: positive: Normal Color, Dry, Warm. negative: Erythema, Rash, Bruising Neurologic: positive: finisher hand II-XII NML intact, Fully Oriented, Alert, Normal Mood/ Affect, Normal Response, Motor Strength 5/5 ED Treatment Course - LABORATORY CBC & Chemistry Diagram: 02/11/17 22:45 02/11/17 22:45 Medical Decision Making - Medical Decision Making 21 yof who has had suprapubic cramping and morning nausea x1 wk. Sexually active and not on control, period is late (LMP 01/05/17). On exam she has minimal suprapubic tenderness but otherwise wnl. DDX: ectopic , IUP, UTI, appendicitis, ovarian cyst, dysmenorrhea. Ordered is urine hCG, quant hCG, CBCD, CMP, Mg, Phos, UA cx, 500c NS. 02/11/17 23:28 Urine hCG is positive; ordered is US transvaginal r/o ectopic . *DC/Admit/Observation/Transfer Diagnosis at time of Disposition: Qualifiers: Weeks of gestation: less than 8 weeks Qualified Code(s): Z3A.01 - Less than 8 weeks gestation of - Discharge Dispostion Disposition: HOME Condition at time of disposition: Stable Admit: No - Patient Instructions Printed Discharge Instructions: DI for Abdominal Pain -- Early Additional Instructions: You were seen in the emergency room for abdominal pain and nausea. We did two tests and you are . We also did an ultrasound and saw the in good position in the uterus. We did blood and urine lab work and there were no concerning results. Please start a vitamin and follow up with an PRACTICE BUSINESS AS[facility] doctor for care. Also follow up with your PCP, or return to the ED for any new or worsening symptoms like severe abdominal pain, fever, significant vaginal bleeding, or other symptoms.
[2017-02-11] MEDS ORDERED: SODIUM CHLORIDE 500 ML IV STA (22:35)
[2017-02-11 23:07] LABS: BASOPHIL 0.6 % (0-2.0); EOSINOPHIL 1.3 % (0-4.5); MCH 28.1 pg (25.7-33.7); MCHC 33.5 g/dl (32.0-36.0); MEAN CELL VOLUME 83.7 fl (80-96); MEAN PLT VOLUME 8.5 fl (7.5-11.1); NEUTROPHILS 60.7 % (42.8-82.8); PLATELET COUNT 273 K/MM3 (134-434); RDW 14.6 % (11.6-15.6); WHITE BLOOD COUNT 14.2 K/mm3 (4.0-10.0)
[2017-02-11 23:12] LABS: URINE APPEARANCE CLOUDY; URINE BILIRUBIN NEGATIVE (NEGATIVE); URINE BLOOD NEGATIVE (NEGATIVE); URINE COLOR YELLOW; URINE GLUCOSE (UA) NEGATIVE (NEGATIVE); URINE KETONE NEGATIVE (NEGATIVE); URINE LEUK ESTERASE NEGATIVE (NEGATIVE); URINE NITRITE NEGATIVE (NEGATIVE); URINE PROTEIN NEGATIVE (NEGATIVE); URINE UROBILINOGEN NEGATIVE mg/dL (0.2-1.0)
[2017-02-11 23:38] LABS: ALBUMIN 3.7 g/dl (3.4-5.0); ANION GAP 8 (8-16); BILIRUBIN,TOTAL 0.2 mg/dL (0.2-1.0); CALCIUM 9.3 mg/dL (8.5-10.1); CO2 27 mmol/L (21-32); CREATININE 0.8 mg/dL (0.55-1.02); GLUCOSE,RANDOM 64 mg/dL (74-106); MAGNESIUM 2.1 mg/dL (1.8-2.4); PHOSPHOROUS 3.9 mg/dL (2.5-4.9); SGOT/AST 14 U/L (15-37); SGPT/ALT 15 U/L (12-78); TOT PROT 6.7 g/dl (6.4-8.2)
[2017-02-11 23:55] LABS: ALK PHOS 52 U/L (45-117)
--- NOTE | 2017-02-12 12:57 | PDOC ---
Patient Follow-up (Call Back) - Post ED Follow - Up Chief Complaint: Nausea/Vomiting Condition at time of discharge: Stable Disposition at time of original discharge: HOME Reason for Call Back: Radiology (Pt. calls for her US report. Report was given over the phone by me. Pt. states she was not given her results before discharge and was told to call today for her results. Explained that there is a fetus with sizing appropriate with LMP (01/05/17). Also explained that there is no heart rate identified at this time, but it can be normal as it was very early in the pregancy.) Signs/Symptoms Improved: Yes (Pt. reports some nausea, no cramping. Denies discharge, vaginal bleeding) - Disposition Rx Needed: No Additional Instructions/Notes: Pt. told to follow up with her THERAPEUTIC PROGRAM WORKER: Dr. Miranda. Pt. has appointment for for repeat ultrasound. Instructed to return if symptoms worsen or if she experiences vaginal bleeding or any changes in her symptoms
== END 2017-02-12 00:43 | disposition home or self-care (01) ==
LOC: JER 21:59
DX: O26.891 Other specified pregnancy related conditions, first trimester (principal); R10.30 Lower abdominal pain, unspecified; Z3A.01 Less than 8 weeks gestation of pregnancy
CPT/HCPCS: 36415; 76817-TC; 80053; 81003; 83735; 84100; 84702; 84703; 85025; 87086; 99282-25

== ENCOUNTER 2018-06-30 15:47 | Emergency (ER) | payer OTHER ==
[2018-06-30 16:08] VITALS: BP 103/59; PULSE 114; TEMP 101.1; BMI 18.1
[2018-06-30] MEDS ORDERED: ACETAMINOPHEN 500 MG TABLET (FP) PO ONE (16:15)
--- NOTE | 2018-06-30 16:16 | PDOC ---
History of Present Illness - General Chief Complaint: Cold Symptoms Stated Complaint: FLU LIKE SYMPTOMS Time Seen by Provider: 06/30/18 16:11 - History of Present Illness Initial Comments: 06/30/18 16:15 22 y/o 15 week gravid F presents for evaluation of flulike symptoms times one day. She has no comorbidities. Past History - Past Medical History Allergies/Adverse Reactions: Allergies Allergy/AdvReac Type Severity Reaction Status Date / Time No Known Allergies Allergy Verified 12/04/16 18:05 Home Medications: Ambulatory Orders NK [No Known Home Medication] 06/30/18 COPD: No Thyroid Disease: No - Reproductive History (#): 1 Para: 0 Cervical CA: No Dysfunctional Uterine Bleeding: No Ectopic : No Endometrial CA: No Polycystic Ovaries: No Therapeutic (s) & number: No Tubal Ligation: No Spontaneous : 0 - Immunization History Immunization Up to Date: Yes - Suicide/Smoking/Psychosocial Hx Smoking Status: No Smoking History: Never smoked Have you smoked in the past 12 months: No Number of Cigarettes Smoked Daily: 10 Information on smoking cessation initiated: No 'Breaking Loose' booklet given: 04/19/16 Hx Alcohol Use: No Drug/Substance Use Hx: No Substance Use Type: None Review of Systems - Review of Systems Constitutional: Yes: Fever HEENTM: Yes: Nose Congestion Respiratory: Yes: Cough *Physical Exam - Vital Signs Last Vital Signs Temp Pulse Resp BP Pulse Ox 101.1 F H 114 H 20 103/59 L 100 06/30/18 15:58 06/30/18 15:58 06/30/18 15:58 06/30/18 15:58 06/30/18 15:58 - Physical Exam Comments: 06/30/18 16:15 HEAD: NC/AT EYES: Conjuntiva clear Ears: Canals and TM's normal NOSE: No d/c THROAT: Moist mucous membrances, oral pharanx clear, uvula midline NECK: Supple without adenopathy CARDIAC: S1 S2 LUNGS: CTA Full and Equal breath sounds ABDOMEN: Soft NT ND MS: Full ROM in all joints without edema NEUROLOGIC: No gross sensory or motor deficits, NVID SKIN: Normal color and temperature no lesions or rashes Moderate Sedation - Procedure Monitoring Vital Signs: Procedure Monitoring Vital Signs Temperature 101.1 F H 06/30/18 15:58 Pulse Rate 114 H 06/30/18 15:58 Respiratory Rate 20 06/30/18 15:58 Blood Pressure 103/59 L 06/30/18 15:58 O2 Sat by Pulse Oximetry (%) 100 06/30/18 15:58 *DC/Admit/Observation/Transfer Diagnosis at time of Disposition: Upper respiratory infection - Discharge Dispostion Disposition: HOME Condition at time of disposition: Stable Decision to Admit order: No - Referrals Referrals: Dominga Ruffin MD [Primary Care Provider] - - Patient Instructions Printed Discharge Instructions: DI for Viral Upper Respiratory Infection -- Adult Additional Instructions: Return to the emergency room should symptoms worsen or go unresolved. It is very important you because of your to keep her fever down. Please take Tylenol to maintain a normal body temperature. Do not take Motrin or any anti-inflammatories. Please follow-up with your BOAT LABORER as well as her primary care physician for further evaluation and treatment options in the next 1-2 days. Return to the emergency room should symptoms worsen or go unresolved. Your flu test today was negative. - Post Discharge Activity
[2018-06-30] MEDS ORDERED: ACETAMINOPHEN 500 MG TABLET (FP) ONE (16:17)
== END 2018-06-30 17:02 | disposition home or self-care (01) ==
LOC: JERFT 15:47
DX: J06.9 Acute upper respiratory infection, unspecified (principal)
CPT/HCPCS: 87804; 99281-25

== ENCOUNTER 2018-07-03 10:58 | Emergency (ER) | payer OTHER ==
[2018-07-03 11:23] VITALS: BP 96/68; PULSE 106; TEMP 99; BMI 17.1
[2018-07-03] MEDS ORDERED: ACETAMINOPHEN 160 MG/5 ML *Children Solution PO ONE (11:37)
--- NOTE | 2018-07-03 12:07 | PDOC ---
History of Present Illness - General Chief Complaint: Sore Throat Stated Complaint: PAIN Time Seen by Provider: 07/03/18 11:28 History Source: Patient Exam Limitations: No Limitations - History of Present Illness Initial Comments: 07/03/18 11:53 With complaints of severe sore throat pain. States was here a few days ago, flu swab negative. Is approximately 12 weeks complaining determinate 07/03/18 11:55 Timing/Duration: unsure, 1 week, getting worse Severity: mild, moderate Associated Symptoms: reports: fever/chills, headaches, malaise. denies: cough Past History - Travel Traveled outside of the country in the last 30 days: No Close contact w/someone who was outside of country & ill: No - Past Medical History Allergies/Adverse Reactions: Allergies Allergy/AdvReac Type Severity Reaction Status Date / Time No Known Allergies Allergy Verified 07/03/18 11:22 Home Medications: Ambulatory Orders NK [No Known Home Medication] 06/30/18 COPD: No Thyroid Disease: No - Reproductive History (#): 1 Para: 0 Cervical CA: No Dysfunctional Uterine Bleeding: No Ectopic : No Endometrial CA: No Polycystic Ovaries: No Therapeutic (s) & number: No Tubal Ligation: No Spontaneous : 0 - Immunization History Immunization Up to Date: Yes - Suicide/Smoking/Psychosocial Hx Smoking Status: No Smoking History: Unknown if ever smoked Have you smoked in the past 12 months: Yes Number of Cigarettes Smoked Daily: 10 'Breaking Loose' booklet given: 04/19/16 Hx Alcohol Use: No Drug/Substance Use Hx: No Substance Use Type: None Review of Systems - Review of Systems Able to Perform ROS?: Yes Is the patient limited Czech proficient: Yes Constitutional: Yes: Symptoms Reported, See HPI, Fever, Malaise HEENTM: Yes: Symptoms Reported, See HPI, Nose Congestion, Throat Pain, Throat Swelling, Difficulty Swallowing Respiratory: Yes: See HPI. No: Symptoms reported, Cough Cardiac (ROS): No: Symptoms Reported Integumentary: Yes: See HPI. No: Symptoms Reported Neurological: Yes: See HPI, Headache. No: Symptoms reported All Other Systems: Reviewed and Negative *Physical Exam - Vital Signs Last Vital Signs Temp Pulse Resp BP Pulse Ox 99 F 106 H 20 96/68 100 07/03/18 11:21 07/03/18 11:21 07/03/18 11:21 07/03/18 11:21 07/03/18 11:21 - Physical Exam General Appearance: Yes: Nourished, Appropriately Dressed, Apparent Distress, Mild Distress HEENT: positive: TMs Normal, Pharyngeal Erythema, Tonsillar Exudate, Tonsillar Erythema, Nasal Congestion, Rhinorrhea. negative: Pharynx Normal Neck: positive: Supple, Lymphadenopathy (R), Lymphadenopathy (L) Respiratory/Chest: positive: Lungs Clear, Normal Breath Sounds Gastrointestinal/Abdominal: positive: Soft. negative: Tender Extremity: positive: Normal Capillary Refill, Normal Inspection, Normal Range of Motion Integumentary: positive: Dry, Warm, Pale Neurologic: positive: medical unit secretary II-XII NML intact, Fully Oriented, Alert, Normal Mood/ Affect, Normal Response Moderate Sedation - Procedure Monitoring Vital Signs: Procedure Monitoring Vital Signs Temperature 99 F 07/03/18 11:21 Pulse Rate 106 H 07/03/18 11:21 Respiratory Rate 20 07/03/18 11:21 Blood Pressure 96/68 07/03/18 11:21 O2 Sat by Pulse Oximetry (%) 100 07/03/18 11:21 *DC/Admit/Observation/Transfer Diagnosis at time of Disposition: Pharyngitis Qualifiers: Pharyngitis/tonsillitis etiology: unspecified etiology Qualified Code(s): J02.9 - Acute pharyngitis, unspecified - Discharge Dispostion Disposition: HOME Condition at time of disposition: Stable Decision to Admit order: No - Referrals Referrals: Rajesh Mayorga MD [Primary Care Provider] - - Patient Instructions Printed Discharge Instructions: DI for Viral Pharyngitis Additional Instructions: Rest, drink lots of fluids: Teas, water, soups Eat cold things: Ice cream, ice pops, ice chips Saltwater gargles Steamy showers/seem to face break up mucus Avoid contact with others until fevers and pain resolved Lots of handwashing and good hygiene, this is contagious YOUR RAPID STREP TEST WAS Negative, if this result from the laboratory in one to 2 days turns positive we will call you and phone in antibiotics as needed. You will not need antibiotics. at this time. Tylenol or Motrin for fever and pain Followup with private physician in one to 2 days as needed if not improving Return to emergency department for worsened symptoms, fevers, dehydration - Post Discharge Activity Forms/Work/School Notes: Back to Work
== END 2018-07-03 13:01 | disposition home or self-care (01) ==
LOC: JERFT 10:58
DX: O26.891 Other specified pregnancy related conditions, first trimester (principal); J02.9 Acute pharyngitis, unspecified; Z3A.12 12 weeks gestation of pregnancy
CPT/HCPCS: 87070; 87880; 99281-25

== ENCOUNTER 2019-04-29 18:08 | Emergency (ER) | payer OTHER ==
[2019-04-29 18:36] VITALS: BP 100/45; PULSE 89; TEMP 98; BMI 17.7
--- NOTE | 2019-04-29 20:16 | PDOC ---
History of Present Illness - General Chief Complaint: Choking Sensation Stated Complaint: SORE THROAT Time Seen by Provider: 04/29/19 19:10 History Source: Patient Exam Limitations: No Limitations - History of Present Illness Initial Comments: 04/29/19 20:14 HISTORY OF PRESENT ILLNESS: Is a 23-year-old woman with past medical history of multiple streptococcal infections presents to the emergency department for evaluation of foreign body sensation in her throat for the past 6 days. Patient reports she was eating boneless wings with her coworkers when she noted the feeling in her throat. Throughout the week she is been able to swallow without difficulty and is able to drink fluids. Patient reports occasionally feeling nauseous but has not vomited and feels like the sensation in her throat has not moved at all. She denies any respiratory difficulty, drooling, shortness of breath or vocal changes. No recent travel or sick contacts. PAST MEDICAL HISTORY: See HPI SURGICAL HISTORY: Denies ALLERGIES: No known drug allergies REVIEW OF SYSTEMS General/Constitutional: Denies fever or chills. Denies weakness, weight change. HEENT: See HPI Cardiovascular: Denies chest pain or shortness of breath. Respiratory: Denies cough, wheezing, or hemoptysis. Gastrointestinal: Denies nausea, vomiting, diarrhea or constipation. Denies rectal bleeding. Genitourinary: Denies dysuria, frequency, or change in urination. Musculoskeletal: Denies joint or muscle swelling or pain. Denies neck or back pain. Skin and breasts: Denies rash or easy bruising. Neurologic: Denies headache, vertigo, loss of consciousness, or loss of sensation. Psychiatric: Denies depression or anxiety. Endocrine: Denies increased thirst. Denies abnormal weight change. Hematologic/Lymphatic: Denies anemia, easy bleeding, or history of blood clots. Allergic/Immunologic: Denies hives or skin allergy. Denies latex allergy. PHYSICAL EXAM General Appearance: Well-appearing, appropriately dressed. No apparent distress , no intoxication. HEENT: EOMI, PERRLA, normal ENT inspection, normal voice, TMs normal, pharynx normal. No conjunctival pallor. No photophobia, scleral icterus. Neck: Supple. Trachea midline. No tenderness, rigidity, carotid bruit, stridor , lymphadenopathy, or thyromegaly. Respiratory/Chest: Lungs CTAB. No shortness of breath, chest tenderness, respiratory distress, accessory muscle use. No crackles, rales, rhonchi, stridor , wheezing, dullness Cardiovascular: RRR. S1, S2. No JVD, murmur, bradycardia, tachycardia. Vascular Pulses: Dorsalis-Pedis (R): 2+, Dorsalis-Pedis (L): 2+ Gastrointestinal/Abdominal: Normal bowel sounds. Abdomen soft, non-distended. No tenderness or rebound tenderness. No organomegaly, pulsatile mass, guarding, hernia, hepatomegaly, splenomegaly. Lymphatic: No adenopathy, tenderness. Musculoskeletal/Extremities: Normal inspection. FROM of all extremities, normal capillary refill. Pelvis Stable. No CVA tenderness. No tenderness to extremities, pedal edema, swelling, erythema or deformity. Integumentary: Appropriate color, dry, warm. No cyanosis, erythema, jaundice or rash Neurologic: boat fueler II-XII intact. Fully oriented, alert. Appropriate mood/affect. Motor strength 5/5. No appreciable EOM palsy, facial droop or sensory deficit. Past History - Past Medical History Allergies/Adverse Reactions: Allergies Allergy/AdvReac Type Severity Reaction Status Date / Time No Known Allergies Allergy Verified 04/29/19 18:36 Home Medications: Ambulatory Orders NK [No Known Home Medication] 06/30/18 COPD: No Thyroid Disease: No - Reproductive History (#): 1 Para: 0 Cervical CA: No Dysfunctional Uterine Bleeding: No Ectopic : No Endometrial CA: No Polycystic Ovaries: No Therapeutic (s) & number: No Tubal Ligation: No Spontaneous : 0 - Immunization History Immunization Up to Date: Yes - Psycho Social/Smoking Cessation Hx Smoking Status: No Smoking History: Never smoked Have you smoked in the past 12 months: Yes Number of Cigarettes Smoked Daily: 10 'Breaking Loose' booklet given: 04/19/16 Hx Alcohol Use: No Drug/Substance Use Hx: No Substance Use Type: None *Physical Exam - Vital Signs Last Vital Signs Temp Pulse Resp BP Pulse Ox 98 F 89 18 100/45 L 100 04/29/19 18:34 04/29/19 18:34 04/29/19 18:34 04/29/19 18:34 04/29/19 18:34 Medical Decision Making - Medical Decision Making 04/29/19 20:14 A/P: 23-year-old woman with foreign body sensation in the throat for 6 days No stridor auscultated No drooling noted Oropharynx is within normal limits without any signs of infection No vocal changes Lungs clear to auscultation bilaterally No palpable masses to the anterior neck Discharge home with ENT follow-up Discharge - Discharge Information Problems reviewed: Yes Clinical Impression/Diagnosis: Foreign body sensation in throat Condition: Stable Disposition: HOME - Admission No - Follow up/Referral Referrals: Andrew Acevedo MD [Staff Physician] - Chaz Mendoza MD [Staff Physician] - - Patient Discharge Instructions Additional Instructions: You been given a referral for an ENT specialist. Call to schedule appointment for reevaluation. If it anytime if difficulty breathing, drooling, difficulty swallowing or vocal changes you need to return to the emergency department immediately. Take Tylenol or Motrin as needed for pain. Follow fountain helper's instructions for appropriate dosage. Thank you very much for choosing us to provide your emergent health care needs. - Post Discharge Activity
== END 2019-04-29 20:15 | disposition home or self-care (01) ==
LOC: JERFT 18:08
DX: R09.89 Other specified symptoms and signs involving the circulatory and respiratory systems (principal)
CPT/HCPCS: 99281-25

== ENCOUNTER 2019-05-23 23:46 | Emergency (ER) | payer OTHER ==
[2019-05-24 00:10] VITALS: TEMP 98.9; BMI 17.4
--- NOTE | 2019-05-24 01:56 | PDOC ---
Documentation entered by Brian Trotter SCRIBE, acting as scribe for Shirley Cavanaugh MD. Shirley Cavanaugh MD: This documentation has been prepared by the Sergo graham Daniel, SCRIBE, under my direction and personally reviewed by me in its entirety. I confirm that the documentation accurately reflects all work, treatment, procedures, and medical decision making performed by me. History of Present Illness - General Chief Complaint: Foreign Body (FB) Stated Complaint: THROAT PAIN Time Seen by Provider: 05/24/19 00:40 History Source: Patient Exam Limitations: No Limitations - History of Present Illness Initial Comments: 05/24/19 00:54 The patient is a 23 year old female with a past medical history of streptococcal infections here today for evaluation of foreign sensation in throat. The patient was seen on 04/29/19 for evaluation of foreign sensation in throat and states that the sensation has gotten worse since then. She states that she has had difficulty swallowing due to her throat feeling swollen, feels nauseous due to poor PO intake, and notes some difficulty breathing. She reports going to an urgent care initially who told her to follow up with her PCP. Patient denies headache, lightheadedness. Denies fever, chills. Denies chest pain. Denies vomiting, diarrhea, abdominal pain. Allergies: NKA PCP: Rajesh Mayorga Past History - Past Medical History Allergies/Adverse Reactions: Allergies Allergy/AdvReac Type Severity Reaction Status Date / Time No Known Allergies Allergy Verified 05/24/19 00:04 Home Medications: Ambulatory Orders NK [No Known Home Medication] 06/30/18 COPD: No Thyroid Disease: No - Reproductive History (#): 1 Para: 0 Cervical CA: No Dysfunctional Uterine Bleeding: No Ectopic : No Endometrial CA: No Polycystic Ovaries: No Therapeutic (s) & number: No Tubal Ligation: No Spontaneous : 0 - Immunization History Immunization Up to Date: Yes - Psycho Social/Smoking Cessation Hx Smoking Status: No Smoking History: Never smoked Have you smoked in the past 12 months: Yes Number of Cigarettes Smoked Daily: 10 'Breaking Loose' booklet given: 04/19/16 Hx Alcohol Use: No Drug/Substance Use Hx: No Substance Use Type: None Review of Systems - Review of Systems Able to Perform ROS?: Yes Comments:: 05/24/19 00:54 CONSTITUTIONAL: Absent: fever, chills, diaphoresis, generalized weakness, malaise, loss of appetite HEENT: +foreign sensation in throat. +difficulty swallowing. Absent: rhinorrhea, nasal congestion, throat pain, throat swelling, mouth swelling, ear pain, eye pain, visual Changes CARDIOVASCULAR: Absent: chest pain, syncope, palpitations, irregular heart rate, lightheadedness , peripheral edema RESPIRATORY: Absent: cough, shortness of breath, dyspnea with exertion, orthopnea, wheezing, stridor, hemoptysis GASTROINTESTINAL: +nausea. Absent: abdominal pain, abdominal distension, vomiting, diarrhea, constipation, melena, hematochezia GENITOURINARY: Absent: dysuria, frequency, urgency, hesitancy, hematuria, flank pain, genital pain MUSCULOSKELETAL: Absent: myalgia, arthralgia, joint swelling SKIN: Absent: rash, itching, pallor HEMATOLOGIC/IMMUNOLOGIC: Absent: easy bleeding, easy bruising, lymphadenopathy, frequent infections ENDOCRINE: Absent: unexplained weight gain, unexplained weight loss, heat intolerance, cold intolerance NEUROLOGIC: Absent: headache, focal weakness or paresthesias, dizziness, unsteady gait, seizure, mental status changes, bladder or bowel incontinence PSYCHIATRIC: Absent: anxiety, depression, suicidal or homicidal ideation, hallucinations. *Physical Exam - Vital Signs Last Vital Signs Temp Pulse Resp BP Pulse Ox 98.9 F 84 18 109/56 L 100 05/24/19 00:00 05/24/19 00:00 05/24/19 00:00 05/24/19 00:00 05/24/19 00:00 - Physical Exam 05/24/19 01:45 GENERAL: Well developed, well nourished. Awake and alert. No acute distress. HEENT: Normocephalic, atraumatic. PERRLA, EOMI. No conjunctival pallor. Sclera are non- icteric. Moist mucous membranes. Oropharynx is clear. No trismus, exudates, kissing tonsils, or edema. Uvula midline. No sublingual or submandibular swelling. No hot potato voice. Speaking clearly. NECK: Supple. Full ROM. No JVD. Carotid pulses 2+ and symmetric, without bruits. No thyromegaly. No lymphadenopathy. CARDIOVASCULAR: Regular rate and rhythm. No murmurs, rubs, or gallops. Distal pulses are 2+ and symmetric. PULMONARY: No evidence of respiratory distress. Lungs clear to auscultation bilaterally. No wheezing, rales or rhonchi. ABDOMINAL: Soft. Non-tender. Non-distended. No rebound or guarding. No organomegaly. Normoactive bowel sounds. MUSCULOSKELETAL Normal range of motion at all joints. No bony deformities or tenderness. No CVA tenderness. EXTREMITIES: No cyanosis. No clubbing. No edema. No calf tenderness. SKIN: Warm and dry. Normal capillary refill. No rashes. No jaundice. NEUROLOGICAL: Alert, awake, appropriate. Cranial nerves 2-12 intact. No deficits to light touch and temperature in face, upper extremities and lower extremities. No motor deficits in the in face, upper extremities and lower extremities. Normoreflexic in the upper and lower extremities. Normal speech. Toes are down- going bilaterally. Gait is normal without ataxia. PSYCHIATRIC: Cooperative. Good eye contact. Appropriate mood and affect. ED Treatment Course - RADIOLOGY Radiology Studies Ordered: Category Date Time Status SOFT TISSUE NECK CT W/O CONTR [CT] Stat CT Scan 05/24/19 01:31 Ordered Medical Decision Making - Medical Decision Making 05/24/19 01:49 23-year-old female who is had dysphasia and foreign body sensation of her throat since last month. She said she felt that started after eating boneless chicken wings at the end of April. She presents with continued symptoms but states that now she is having some problems swallowing solids. She has no complaints of motor weakness, tingling or numbness in her extremities or diplopia or speech difficulties In April she was told to follow-up with dolphin researcher which she did not do plan ct scan neck plan if the ct sacn of her neck is negaitve ,she should be referred to GI for swallowing Discharge - Discharge Information Problems reviewed: Yes Clinical Impression/Diagnosis: Foreign body sensation in throat Condition: Improved Disposition: HOME - Follow up/Referral Referrals: Rajesh Mayorga MD [Primary Care Provider] - - Patient Discharge Instructions Additional Instructions: Please follow up with you PCP if symptoms persist. Return to the ED with any new or concerning findings. - Post Discharge Activity
--- NOTE | 2019-05-24 03:14 | PDOC ---
*Physical Exam - Vital Signs Last Vital Signs Temp Pulse Resp BP Pulse Ox 98.9 F 84 18 109/56 L 100 05/24/19 00:00 05/24/19 00:00 05/24/19 00:00 05/24/19 00:00 05/24/19 00:00 ED Treatment Course - ADDITIONAL ORDERS Additional order review: Laboratory Results 05/24/19 01:50 Urine HCG, Qual Negative Medical Decision Making - Medical Decision Making 05/24/19 03:13 CT Negative Discharge - Discharge Information Problems reviewed: Yes Clinical Impression/Diagnosis: Foreign body sensation in throat Condition: Improved Disposition: HOME - Admission No - Follow up/Referral Referrals: Rajesh Mayorga MD [Primary Care Provider] - - Patient Discharge Instructions Additional Instructions: Please follow up with you PCP if symptoms persist. Return to the ED with any new or concerning findings. - Post Discharge Activity
[2019-05-24 03:27] VITALS: BP 102/68; PULSE 77
== END 2019-05-24 03:27 | disposition home or self-care (01) ==
LOC: JER 23:46
DX: R09.89 Other specified symptoms and signs involving the circulatory and respiratory systems (principal)
CPT/HCPCS: 70490-TC; 84703; 99282-25

== ENCOUNTER 2021-03-25 19:25 | Inpatient (IN) | payer OTHER ==
[2021-03-25] MEDS ORDERED: AMPICILLIN SODIUM 2 GM VIAL ONE (19:40)
[2021-03-25 20:51] VITALS: BMI 24.4
[2021-03-25] MEDS ORDERED: AMPICILLIN - 2 GM in SODIUM CHLORIDE 100 ML IVPB ONE (21:15)
[2021-03-25] MEDS ORDERED: ELECTROLYTE-148 SOLN 1,000 ML IV SCH (21:15)
[2021-03-25 22:43] LABS: BASO % 0.5 % (0-2.0); EOS % 0.8 % (0-4.5); HEMATOCRIT 24.4 % (32.4-45.2); HEMOGLOBIN 7.6 GM/dL (10.7-15.3); LYMPH % 26.4 % (8-40); MCHC 31.1 g/dl (32.0-36.0); MEAN CELL VOLUME 64.2 fl (80-96); MEAN PLT VOLUME 10.1 fl (7.5-11.1); MONO % 6.8 % (3.8-10.2); NEUT % 65.5 % (42.8-82.8); PLATELET COUNT 251 10^3/uL (134-434)
[2021-03-25 22:45] LABS: MCH 19.9 pg (25.7-33.7)
[2021-03-25 22:51] LABS: INR 1.01 (0.83-1.09); PROTHROMBIN TIME (PATIENT) 11.3 SEC (9.7-13.0)
[2021-03-25 22:54] LABS: ACTIVATED PTT 24.5 SECONDS (25.2-36.5)
[2021-03-25] MEDS: AMPICILLIN - 1 GM in SODIUM CHLORIDE 100 ML IVPB SCH (23:00)
[2021-03-25] MEDS ORDERED: OXYTOCIN 20 UNITS in 0.9% NS 20 UNIT/1,000 ML INFUS.BAG IV ONE (23:07)
[2021-03-25] MEDS ORDERED: LIDOCAINE HCL 1% PRESERVATIVE FREE - 30ML VIAL ONE (23:07)
[2021-03-25] MEDS ORDERED: AMPICILLIN SODIUM 1 GM VIAL ONE (23:07)
[2021-03-25 23:08] LABS: CALCIUM 8.5 mg/dL (8.5-10.1)
[2021-03-25 23:09] LABS: BLOOD UREA NITROGEN 3.8 mg/dL (7-18)
[2021-03-25 23:11] LABS: ANISOCYTOSIS 3+; MACROCYTOSIS 0; OVALOCYTE 1+; PLATELET ESTIMATE NORMAL; TARGET CELLS 2+; TEAR DROP CELLS 1+
[2021-03-25 23:12] LABS: CREATININE 0.5 mg/dL (0.55-1.3)
[2021-03-26] MEDS ORDERED: METHYLERGONOVINE MALEATE 0.2 MG/1 ML AMP IM PRN (00:05)
[2021-03-26] MEDS ORDERED: BENZOCAINE 20% 57 GM BOTTLE TP PRN (00:05)
[2021-03-26] MEDS ORDERED: IBUPROFEN 600 MG TABLET (FP) PO PRN (00:05)
[2021-03-26] MEDS ORDERED: BISACODYL 10 MG SUPP.RECT RC PRN (00:05)
[2021-03-26] MEDS ORDERED: WITCH HAZEL 50% (TUCKS) 40 PAD/JAR PAD TP PRN (00:05)
[2021-03-26] MEDS ORDERED: ACETAMINOPHEN 325 MG TABLET (FP) PO PRN ×3 (00:05→17:55)
[2021-03-26] MEDS ORDERED: BENZOCAINE 28 GM HEMORRHOIDAL OINTMENT TP PRN (00:05)
[2021-03-26] MEDS ORDERED: OXYTOCIN 20 UNITS in 0.9% NS 20 UNIT/1,000 ML INFUS.BAG IV SCH (00:15)
[2021-03-26] MEDS: AMPICILLIN - 1 GM in SODIUM CHLORIDE 100 ML IVPB SCH (02:32)
[2021-03-26] MEDS ORDERED: ACETAMINOPHEN 650 MG/20.3 ML ORAL SOLUTION (CUPS) PO PRN ×2 (18:20→18:21)
[2021-03-26] MEDS ORDERED: IBUPROFEN 100 MG/5 ML UNIT DOSE CUPS PO PRN (18:21)
[2021-03-26 18:34] VITALS: TEMP 98.4
[2021-03-27 07:38] LABS: BASO % 0.7 % (0-2.0); EOS % 1.5 % (0-4.5); HEMATOCRIT 23.8 % (32.4-45.2); HEMOGLOBIN 7.4 GM/dL (10.7-15.3); LYMPH % 32.9 % (8-40); MEAN CELL VOLUME 63.5 fl (80-96); MEAN PLT VOLUME 9.7 fl (7.5-11.1); MONO % 6.5 % (3.8-10.2); NEUT % 58.4 % (42.8-82.8); PLATELET COUNT 222 10^3/uL (134-434); RBC 3.75 M/mm3 (3.60-5.2); RDW 19.7 % (11.6-15.6); WHITE BLOOD COUNT 12.1 K/mm3 (4.0-10.0)
[2021-03-27 07:51] LABS: MCH 19.7 pg (25.7-33.7)
[2021-03-27 11:43] VITALS: BP 107/70; PULSE 80
[2021-03-27] MEDS ORDERED: SENNOSIDES/DOCUSATE COMBO (SENNA PLUS) TABLET (UD) PO PRN (22:00)
== END 2021-03-27 17:00 | disposition home or self-care (01) | DRG 807 ==
LOC: JLDR 19:25 → J3W 03-26 01:17
PROVIDERS: ADMIT Specialist; ATTEND Specialist
PROC: 0HQ9XZZ Repair Perineum Skin, External Approach (ICD-10-PCS; principal; 2021-03-25)
PROC: 10E0XZZ Delivery of Products of Conception, External Approach (ICD-10-PCS; 2021-03-25)
DX: O70.0 First degree perineal laceration during delivery (principal); Z37.0 Single live birth; Z3A.37 37 weeks gestation of pregnancy
CPT/HCPCS: 36415; 59409; 80048; 85025; 85610; 85730; 86780; 86850; 86900; 86901; C9803; U0003; U0005

== ENCOUNTER 2022-01-03 18:08 | Emergency (ER) | payer OTHER ==
[2022-01-03 18:15] VITALS: BP 99/55; PULSE 102; RESP 18; TEMP 100; BMI 18.3
[2022-01-03] MEDS ORDERED: ACETAMINOPHEN 160 MG/5 ML *Children Solution PO ONE (18:30)
== END 2022-01-03 19:00 | disposition home or self-care (01) ==
LOC: JER 18:08
DX: J02.0 Streptococcal pharyngitis (principal)
CPT/HCPCS: 87651; 99283-25; C9803-CS; U0003; U0005

== ENCOUNTER 2022-03-18 19:45 | Emergency (ER) | payer OTHER ==
[2022-03-18 19:53] VITALS: BP 103/67; RESP 19; TEMP 98.7; BMI 19.1
[2022-03-18] MEDS ORDERED: KETOROLAC TROMETHAMINE 30 MG/1 ML VIAL IVPUSH ONE (21:08)
[2022-03-18] MEDS ORDERED: SODIUM CHLORIDE 0.9% 500 ML INFUS.BAG IV ONE (21:08)
[2022-03-18] MEDS ORDERED: DEXAMETHASONE SOD PHOSPHATE 10 MG/1 ML VIAL IVPUSH ONE (21:08)
[2022-03-18] MEDS ORDERED: KETOROLAC TROMETHAMINE 30 MG/1 ML VIAL ONE (21:10)
[2022-03-18] MEDS ORDERED: DEXAMETHASONE SOD PHOSPHATE 10 MG/1 ML VIAL ONE (21:10)
[2022-03-18 22:26] VITALS: PULSE 88
== END 2022-03-18 22:32 | disposition home or self-care (01) ==
LOC: JERFT 19:45
PROC: 3E033GC Introduction of Other Therapeutic Substance into Peripheral Vein, Percutaneous Approach (ICD-10-PCS; principal; 2022-03-18)
DX: J02.8 Acute pharyngitis due to other specified organisms (principal)
CPT/HCPCS: 0241U-QW; 36415; 86308; 87651; 99284-25; J1100

== ENCOUNTER 2022-04-20 09:59 | Emergency (ER) | payer OTHER ==
[2022-04-20 10:04] VITALS: BP 109/70; PULSE 83; RESP 18; TEMP 98; BMI 19.1
[2022-04-20] MEDS ORDERED: LIDOCAINE HCL 1%, 10 MG/ML (50 mL VIAL) PNB ONE (10:20)
[2022-04-20] MEDS ORDERED: BUPIVACAINE HCL 0.25% 125 MG/50 ML VIAL PNB ONE (10:20)
[2022-04-20] MEDS ORDERED: IBUPROFEN 600 MG TABLET (FP) PO ONE ×2 (10:20→10:22)
== END 2022-04-20 10:28 | disposition home or self-care (01) ==
LOC: JERFT 09:59
DX: K08.89 Other specified disorders of teeth and supporting structures (principal)
CPT/HCPCS: 99283-25

== ENCOUNTER 2022-05-06 11:27 | Emergency (ER) | payer OTHER ==
[2022-05-06 11:48] VITALS: BP 112/61; PULSE 101; RESP 18; TEMP 99.2; BMI 18.3
[2022-05-06] MEDS ORDERED: DEXAMETHASONE SOD PHOSPHATE 10 MG/1 ML VIAL IM ONE (12:03)
[2022-05-06] MEDS ORDERED: IBUPROFEN 100 MG/5 ML UNIT DOSE CUPS PO ONE (12:03)
[2022-05-06] MEDS ORDERED: IBUPROFEN 100 MG/5 ML UNIT DOSE CUPS ONE (12:10)
[2022-05-06] MEDS ORDERED: DEXAMETHASONE SOD PHOSPHATE 10 MG/1 ML VIAL ONE (12:10)
[2022-05-06 13:14] LABS: THROAT:GRP A STREP NOT DETECTED (NOTDETECTED)
== END 2022-05-06 13:00 | disposition home or self-care (01) ==
LOC: JER 11:27
PROC: 3E023GC Introduction of Other Therapeutic Substance into Muscle, Percutaneous Approach (ICD-10-PCS; principal; 2022-05-06)
DX: B34.9 Viral infection, unspecified (principal)
CPT/HCPCS: 0241U-QW; 87651; 99284-25; J1100

== ENCOUNTER 2022-05-11 11:42 | Emergency (ER) | payer OTHER ==
[2022-05-11 11:50] VITALS: BP 101/62; PULSE 101; RESP 18; TEMP 99; BMI 18.3
[2022-05-11] MEDS ORDERED: KETOROLAC TROMETHAMINE 30 MG/1 ML VIAL IM ONE (13:14)
== END 2022-05-11 13:22 | disposition home or self-care (01) ==
LOC: JERFT 11:42 → JER 11:42 → JERFT 13:22
PROC: 3E0233Z Introduction of Anti-inflammatory into Muscle, Percutaneous Approach (ICD-10-PCS; principal; 2022-05-11)
DX: J02.9 Acute pharyngitis, unspecified (principal)
CPT/HCPCS: 99284-25

== ENCOUNTER 2022-11-05 09:54 | Emergency (ER) | payer OTHER ==
[2022-11-05 09:59] VITALS: BP 100/64; PULSE 73; RESP 18; TEMP 98.2; BMI 20.7
[2022-11-05] MEDS ORDERED: FAMOTIDINE 20 MG TABLET PO ONE (10:39)
[2022-11-05] MEDS ORDERED: MAG HYDROX/AL HYDROX/SIMETH 30 ML UNIT-DOSE CUP PO ONE (10:40)
[2022-11-05] MEDS ORDERED: FAMOTIDINE 20 MG TABLET ONE (10:43)
[2022-11-05] MEDS ORDERED: MAG HYDROX/AL HYDROX/SIMETH 30 ML UNIT-DOSE CUP ONE (10:43)
[2022-11-05] MEDS ORDERED: FAMOTIDINE 20 MG/2.5 ML ORAL LIQUID PEG SCH (11:00)
[2022-11-05 11:23] LABS: THROAT:GRP A STREP NOT DETECTED (NOTDETECTED)
== END 2022-11-05 11:51 | disposition home or self-care (01) ==
LOC: JERFT 09:54 → JER 09:54 → JERFT 11:51
DX: R07.0 Pain in throat (principal); R05.9 Cough, unspecified; K21.9 Gastro-esophageal reflux disease without esophagitis; Z20.822 Contact with and (suspected) exposure to COVID-19
CPT/HCPCS: 0241U-QW; 72040-TC; 87651; 99284-25

== ENCOUNTER 2023-03-15 23:11 | Emergency (ER) | payer OTHER ==
[2023-03-15 23:27] VITALS: BP 101/65; PULSE 117; RESP 18; BMI 22.6
[2023-03-16] MEDS ORDERED: ACETAMINOPHEN 500 MG TABLET (FP) PO ONE (00:27)
[2023-03-16] MEDS ORDERED: CLINDAMYCIN HCL 300 MG CAPSULE PO ONE (00:30)
[2023-03-16] MEDS ORDERED: CLINDAMYCIN HCL 150 MG CAPSULE (FP) ONE (00:43)
[2023-03-16] MEDS ORDERED: ACETAMINOPHEN 325 MG TABLET (FP) ONE (00:43)
[2023-03-16 00:53] VITALS: TEMP 99.8
== END 2023-03-16 00:55 | disposition home or self-care (01) ==
LOC: JER 23:11
DX: J02.9 Acute pharyngitis, unspecified (principal); R05.9 Cough, unspecified; R50.9 Fever, unspecified; J35.8 Other chronic diseases of tonsils and adenoids
CPT/HCPCS: 87651; 99283-25

== ENCOUNTER 2024-02-21 12:00 | Emergency (ER) | payer OTHER ==
[2024-02-21 12:08] VITALS: BP 108/68; PULSE 81; RESP 18; TEMP 98.6; BMI 22.6
[2024-02-21] MEDS ORDERED: IBUPROFEN 600 MG TABLET (FP) PO ONE (12:38)
[2024-02-21] MEDS ORDERED: ACETAMINOPHEN 500 MG TABLET (FP) ONE (12:38)
[2024-02-21] MEDS: ACETAMINOPHEN 500 MG TABLET (FP) PO ONE (12:44)
[2024-02-21] MEDS: IBUPROFEN 600 MG TABLET (FP) PO ONE (12:44)
== END 2024-02-21 12:51 | disposition home or self-care (01) ==
LOC: JERFT 12:00
DX: M62.838 Other muscle spasm (principal); V43.12XA Car passenger injured in collision with other type car in nontraffic accident, initial encounter
CPT/HCPCS: 99283-25